=== PATIENT | female | born 1995 | race Caucasian/White ===

== ENCOUNTER 2018-07-25 22:34 | Emergency (ER) | payer BC ==
[2018-07-25] MEDS ORDERED: LET GEL TOPICAL 1 EA SYR TP ONE ×2 (22:58→23:03)
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
[2018-07-26 00:09] VITALS: BP 113/89
== END 2018-07-26 00:11 | disposition home or self-care (01) ==
PROC: 0HQ1XZZ Repair Face Skin, External Approach (ICD-10-PCS; principal; 2018-07-25)
DX: S01.81XA Laceration without foreign body of other part of head, initial encounter (principal); W22.8XXA Striking against or struck by other objects, initial encounter; Y92.9 Unspecified place or not applicable; Y93.9 Activity, unspecified; Y99.9 Unspecified external cause status